=== PATIENT | male | born 1945 | race Caucasian/White ===

== ENCOUNTER → 2019-10-02 | Outpatient (CLI) | payer OTHER | LOC: SJCVC 14:45 | DX: R94.31 Abnormal electrocardiogram [ECG] [EKG] (principal); I44.7 Left bundle-branch block, unspecified; I25.10 Atherosclerotic heart disease of native coronary artery without angina pectoris; I73.9 Peripheral vascular disease, unspecified; I35.0 Nonrheumatic aortic (valve) stenosis; I65.23 Occlusion and stenosis of bilateral carotid arteries; I77.811 Abdominal aortic ectasia; I10 Essential (primary) hypertension; E78.00 Pure hypercholesterolemia, unspecified; Z95.2 Presence of prosthetic heart valve; Z95.1 Presence of aortocoronary bypass graft; Z96.653 Presence of artificial knee joint, bilateral; Z96.641 Presence of right artificial hip joint; Z79.899 Other long term (current) drug therapy; Z87.891 Personal history of nicotine dependence ==

== ENCOUNTER → 2019-10-26 | Outpatient (CLI) | payer OTHER | LOC: SJCVCIMAG 10-24 08:21 | DX: I44.7 Left bundle-branch block, unspecified (principal); R94.31 Abnormal electrocardiogram [ECG] [EKG]; I70.292 Other atherosclerosis of native arteries of extremities, left leg; I77.1 Stricture of artery; I65.23 Occlusion and stenosis of bilateral carotid arteries; I77.811 Abdominal aortic ectasia; E78.00 Pure hypercholesterolemia, unspecified; I10 Essential (primary) hypertension; Z95.1 Presence of aortocoronary bypass graft ==

== ENCOUNTER → 2019-11-27 | Outpatient (CLI) | payer OTHER ==
[~2019-11-27] VITALS: Ht 177.8 cm; Wt 87.1 kg
[~2019-11-27] MED LIST: ASA81BEC PO; NORVASC 2.5 MG2.5 M1 PO; OLMESARTAN-HCT1 EAC2 PO; REPATHA SU140 MG/1 M SUBQ
[2019-11-27 08:28] LABS: BASOPHILS 0.7 % (0.0-2.0); EOSINOPHILS 5.7 % (0.0-3.0); HEMATOCRIT 45.3 % (42.0-52.0); HEMOGLOBIN 15.5 gm/dL (14.0-18.0); LYMPHOCYTES 32.7 % (24.0-44.0); MCH 33.1 pg (26.0-34.0); MCHC 34.3 g/dL (28.0-37.0); MCV 96.7 fL (80.0-100.0); MONOCYTES 9.5 % (1.0-8.0); PLATELET COUNT 174 thou/uL (150-400); POLYS 51.4 % (36.0-66.0); RBC 4.69 mil/uL (4.50-6.00); RDW 13.1 % (10.5-14.5); WBC 3.9 thou/uL (4.0-11.0)
[2019-11-27 08:46] LABS: CALCIUM 9.2 mg/dL (8.5-10.1); POTASSIUM 3.8 mmol/L (3.5-5.1)
[2019-11-27 08:53] VITALS: BP 129/78
--- NOTE | 2019-11-27 17:04 | CATHLAB ---
[facility] [place] [address] INVASIVE PROCEDURE REPORT Name: KELLIE JUNG [facility] [id number] Admission: 11/27/19 Attend Phys: José Miguel Muir MD, Discharge: Date of : 47 Report #: [id number] THIS REPORT FOR: cc: Patricio Crooks MD, Michael E. MD Mancuso, Gerald M. MD [facility] ~ APPROVED REPORT Study performed: 11/27/2019 12:04:06 Patient Details Patient Status: Out-Patient Room #: The patient is a 73 year-old male Event Personnel José Miguel Muir Wet End Helper, Olga Godwin RN RN, Antonio Howe RTR ScrHellen pabon Ja'net RTR Monitor Procedures Performed Left Heart Cath w/or w/o Coronaries [id number] LHCArt Access - R femoral artery* [id number] Initial Mod Sed Same Phys/QHP Gr5y [id number] Hemostasis w/ Mynx CORONARIES Angiography and bypass grafts Supravalvular Aortagraphy injection Indication Chest pain Procedure Narrative A 6FR sheath was inserted into the RFA^. Coronary angiography was performed using coronary diagnostic catheters. The right coronary system was accessed and visualized with a 6FR RCB #[id number] catheter. The left coronary system was accessed and visualized with a JL4 catheter. The left ventricle was accessed and visualized with a Pigtail catheter. Closure device was deployed with a Fr MYNXGRIP 6/7F #[id number]. The patient tolerated the procedure well and there were no complications associated with the procedure. There was no hematoma. Intraoperative Conscious Sedation Sedation start time: 12:23 Case end Time: 12:51 Fentanyl 50 mcg Versed 1 mg Fluoro Time: 3.33 minutes [facility] [address] [place] [address] INVASIVE PROCEDURE REPORT Name: FABIANAKELLIE Enid Room #: [facility]#: [id number] Admission: 11/27/19 Attend Phys: José Miguel Muir, Discharge: Date of : 47 Report #: [id number] Dose: DAP 5030.90 cGycm2 589 mGy Contrast Type and Amount: Visipaque 80 ml Hemodynamics The aortic pressure is 138/72 mmHg with a mean of 77 mmHg. PCI Technique Lesion Percutaneous coronary intervention was performed on the Prox common iliac. Conclusion #1. 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 There is trivial aortic insufficiency. No significant aortic root enlargement. #2 left main mildly calcified large giving rise to LAD and circumflex. No significant occlusive disease #3 LAD with mild to moderate proximal disease and calcification but not occlusive. Giving rise to a diagonal branch which has a 60 to 70% proximal lesion. #4 codominant circumflex OM proximal calcification with only mild distal disease moderately large in distribution. #5 high-grade proximal mid RCA stenosis competitively filling a distal PDA. #6 SVG to the PDA mild ostial disease of 40% preserved vessel which then attaches to the proximal PDA with a 30% anastomotic lesion in competitively filling the PDA which is a codominant system. Recommendations and plan: Continue aggressive risk factor modification. See Dr. Allen's peripheral intervention dictation. Coronary status is stable. <ELECTRONICALLY SIGNED> By: José Miguel Muir MD, [facility] 11/27/19 170 02 02 José Miguel Muir MD, FACC /INF
--- NOTE | 2019-12-01 12:23 | EKG ---
[facility] [place] [address] ELECTROCARDIOGRAM REPORT Name: KELLIE JUNG Room #: [facility]#: [id number] Admission: 11/27/19 Attend Phys: José Miguel Muir MD, Discharge: Date of : 47 Report #: [id number] THIS REPORT FOR: cc: Patricio Crooks MD, Michael E. MD Lundgren,Ulices Friend MD [facility] ~ THIS REPORT FOR: //name// [facility] Test Date: 2019-11-27 Test Time: 08:35:02 Pat Name: KELLIE JUNG Department: Room: Gender: Eight Arm Operator: [facility] : 1945 Requested By: José Miguel Muir Order Number: [id number] MD: Ulices Enriquez Measurements Intervals [place] Rate: 64 P: 21 [place]: 189 QRS: -45 QRSD: 167 T: 116 QT: 461 QTc: 476 Interpretive Statements Sinus rhythm Left bundle branch block No previous ECG available for comparison Electronically Signed On 11-27-2019 9:42:19 CDT by Ulices Enriquez [email or web address] <ELECTRONICALLY SIGNED> By: Ulices Enriquez MD, [facility] 11/27/19 0942 4 Ulices Enriquez MD, [facility] /EPI
== END | disposition home or self-care (01) ==
LOC: CATH 11-13 07:04
PROVIDERS: ATTEND Internal Medicine Cardiovascular Disease
DX: R07.9 Chest pain, unspecified (principal); I25.810 Atherosclerosis of coronary artery bypass graft(s) without angina pectoris; I35.1 Nonrheumatic aortic (valve) insufficiency; I70.212 Atherosclerosis of native arteries of extremities with intermittent claudication, left leg; I70.1 Atherosclerosis of renal artery; I10 Essential (primary) hypertension; E78.5 Hyperlipidemia, unspecified; Z98.890 Other specified postprocedural states; Z79.899 Other long term (current) drug therapy; Z95.1 Presence of aortocoronary bypass graft; Z96.652 Presence of left artificial knee joint; Z96.641 Presence of right artificial hip joint; Z79.01 Long term (current) use of anticoagulants; Z95.2 Presence of prosthetic heart valve; Z79.82 Long term (current) use of aspirin

== ENCOUNTER → 2020-02-26 | Outpatient (CLI) | payer OTHER | LOC: SJCVCIMAG 09:48 | PROVIDERS: ATTEND Nuclear Medicine Nuclear Cardiology | DX: I65.23 Occlusion and stenosis of bilateral carotid arteries (principal); I70.202 Unspecified atherosclerosis of native arteries of extremities, left leg; I77.811 Abdominal aortic ectasia; I25.10 Atherosclerotic heart disease of native coronary artery without angina pectoris; I10 Essential (primary) hypertension; I44.7 Left bundle-branch block, unspecified; I35.0 Nonrheumatic aortic (valve) stenosis; Z95.2 Presence of prosthetic heart valve; Z95.1 Presence of aortocoronary bypass graft; E78.00 Pure hypercholesterolemia, unspecified; Z79.899 Other long term (current) drug therapy; Z87.891 Personal history of nicotine dependence ==

== ENCOUNTER → 2020-09-02 | Outpatient (CLI) | payer OTHER ==
[~2020-09-02] MED LIST changes: +PLAVIX 75 MG TA75 MG PO; +ZETIA10 MG PO
== END ==
LOC: SJCVCIMAG 07:25
PROVIDERS: ATTEND Nuclear Medicine Nuclear Cardiology
DX: I07.1 Rheumatic tricuspid insufficiency (principal); I25.10 Atherosclerotic heart disease of native coronary artery without angina pectoris; I44.7 Left bundle-branch block, unspecified; Z95.2 Presence of prosthetic heart valve; Z79.82 Long term (current) use of aspirin; Z79.899 Other long term (current) drug therapy; Z87.891 Personal history of nicotine dependence

== ENCOUNTER → 2020-09-03 | Outpatient (CLI) | payer OTHER | LOC: SJCVCIMAG 07:23 | PROVIDERS: ATTEND Internal Medicine Cardiovascular Disease | DX: I70.202 Unspecified atherosclerosis of native arteries of extremities, left leg (principal); I44.7 Left bundle-branch block, unspecified; I35.0 Nonrheumatic aortic (valve) stenosis; I10 Essential (primary) hypertension; E78.00 Pure hypercholesterolemia, unspecified; I25.10 Atherosclerotic heart disease of native coronary artery without angina pectoris; Z95.1 Presence of aortocoronary bypass graft; Z95.820 Peripheral vascular angioplasty status with implants and grafts ==

== ENCOUNTER → 2020-09-05 | Outpatient (CLI) | payer OTHER ==
[~2020-09-05] VITALS: Ht 177.8 cm; Wt 82.6 kg
[2020-09-05 09:20] VITALS: BP 134/85
[2020-09-05 09:26] LABS: HEMOGLOBIN 14.9 gm/dL (14.0-18.0); MCH 32.8 pg (26.0-34.0); MCV 96.7 fL (80.0-100.0); RBC 4.56 mil/uL (4.50-6.00); RDW 13.3 % (10.5-14.5); WBC 5.7 thou/uL (4.0-11.0)
[2020-09-05 09:35] LABS: CALCIUM 9.5 mg/dL (8.5-10.1); CREATININE 1.1 mg/dL (0.7-1.3); POTASSIUM 4.1 mmol/L (3.5-5.1)
== END | disposition home or self-care (01) ==
LOC: CATH 08:37
PROVIDERS: ATTEND Nuclear Medicine Nuclear Cardiology
DX: I70.248 Atherosclerosis of native arteries of left leg with ulceration of other part of lower leg (principal); L97.929 Non-pressure chronic ulcer of unspecified part of left lower leg with unspecified severity; I70.1 Atherosclerosis of renal artery; I10 Essential (primary) hypertension; I25.10 Atherosclerotic heart disease of native coronary artery without angina pectoris; E78.00 Pure hypercholesterolemia, unspecified; Z98.890 Other specified postprocedural states; Z79.899 Other long term (current) drug therapy; Z95.1 Presence of aortocoronary bypass graft; Z87.891 Personal history of nicotine dependence

== ENCOUNTER → 2020-12-10 | Outpatient (CLI) | payer OTHER | LOC: SJCVCIMAG 07:33 | PROVIDERS: ATTEND Nuclear Medicine Nuclear Cardiology | DX: I70.202 Unspecified atherosclerosis of native arteries of extremities, left leg (principal); I77.9 Disorder of arteries and arterioles, unspecified; I77.811 Abdominal aortic ectasia; I25.10 Atherosclerotic heart disease of native coronary artery without angina pectoris; I35.0 Nonrheumatic aortic (valve) stenosis; E78.00 Pure hypercholesterolemia, unspecified; I44.7 Left bundle-branch block, unspecified; Z95.2 Presence of prosthetic heart valve; Z95.1 Presence of aortocoronary bypass graft; Z87.891 Personal history of nicotine dependence; Z72.89 Other problems related to lifestyle; Z79.82 Long term (current) use of aspirin; Z79.899 Other long term (current) drug therapy; Z95.820 Peripheral vascular angioplasty status with implants and grafts ==

== ENCOUNTER → 2021-06-13 | Outpatient (CLI) | payer OTHER | LOC: SJCVCIMAG 05-28 15:47 | PROVIDERS: ATTEND Internal Medicine Cardiovascular Disease | DX: I65.23 Occlusion and stenosis of bilateral carotid arteries (principal); I70.202 Unspecified atherosclerosis of native arteries of extremities, left leg; I77.9 Disorder of arteries and arterioles, unspecified; I25.10 Atherosclerotic heart disease of native coronary artery without angina pectoris; I44.7 Left bundle-branch block, unspecified; E78.00 Pure hypercholesterolemia, unspecified; I10 Essential (primary) hypertension; Z95.2 Presence of prosthetic heart valve; Z95.1 Presence of aortocoronary bypass graft; Z87.891 Personal history of nicotine dependence; Z72.89 Other problems related to lifestyle; Z79.82 Long term (current) use of aspirin; Z79.899 Other long term (current) drug therapy ==